=== PATIENT | female | born 1980 | race African-American/Black ===

== ENCOUNTER 2023-12-17 22:26 | Emergency (ER) | payer MEDICAID ==
[2023-12-18 00:02] LABS: BASOPHILS ABSOLUTE AUTO 0.1 K/mm3 (0.0-0.2); BASOPHILS PERCENT AUTO 0.3 % (0.0-1.0); EOSINOPHILS PERCENT AUTO 0.2 % (0.0-6.0); HEMATOCRIT 28.8 % (37.0-47.0); HEMOGLOBIN 9.4 gm/dl (12.0-16.0); IMMATURE GRAN ABSOLUTE AUTO 0.15 K/mm3 (0.00-0.05); IMMATURE GRAN PERCENT AUTO 0.8 % (0.0-0.4); LYMPHOCYTES ABSOLUTE AUTO 0.8 K/mm3 (1.0-4.8); LYMPHOCYTES PERCENT AUTO 4.6 % (24.0-44.0); MEAN CORPUSCULAR HEMOGLOBIN 29.7 pg (28.0-32.0); MEAN CORPUSCULAR HGB CONC 32.6 g/dl (32.0-36.0); MEAN CORPUSCULAR VOLUME 91.1 fl (83.0-99.0); MEAN PLATELET VOLUME 11.3 fl (9.4-12.3); MONOCYTES PERCENT AUTO 11.1 % (0.0-8.0); NEUTROPHILS ABSOLUTE AUTO 14.8 K/mm3 (1.8-7.7); PLATELET COUNT,PLT 74 K/mm3 (150-400); RED BLOOD CELL COUNT 3.16 M/mm3 (4.10-5.30); WHITE BLOOD CELL COUNT,WBC 17.89 K/mm3 (3.9-11.3)
[2023-12-18 00:15] LABS: CORONAVIRUS COVID-19 NAA NEGATIVE (NEGATIVE); INFLUENZA A NAA NEGATIVE (NEGATIVE); RESPIRATORY SYNCYTIAL VIR NAA NEGATIVE (NEGATIVE)
[2023-12-18 00:27] LABS: SLIDE REVIEW ABNORMAL SMEAR
[2023-12-18 00:34] LABS: A/G RATIO 0.4 (1-2); ALANINE AMINOTRANSFERASE,ALT 22 U/L (14-59); ALBUMIN 2.3 g/dl (3.4-5.0); ALKALINE PHOSPHATASE 162 U/L (46-116); ANION GAP 14.2 (5-15); BILIRUBIN TOTAL 6.2 mg/dL (0.2-1.0); BLOOD UREA NITROGEN,BUN 4 mg/dL (7-18); BUN/CREATININE RATIO 4.4 (14-18); CALCIUM 7.8 mg/dL (8.5-10.1); CARBON DIOXIDE,CO2 21 mEq/L (21-32); CHLORIDE,CL 99 mEq/L (98-107); EST CRCL DRUG DOSING (CG) 79.99 mL/min; ESTIMATED GFR 82 mL/min (>60); GLUCOSE RANDOM 105 mg/dL (70-99); SODIUM,NA 131 mEq/L (136-145)
[2023-12-18 00:35] LABS: APPEARANCE,URINE CLEAR (Clear); BILIRUBIN,URINE 2+ (Negative); COLOR,URINE DARK YELLOW (Yellow); GLUCOSE,URINE NEGATIVE (Negative); KETONES,URINE 2+ (Negative); LEUKOCYTE ESTERASE,URINE 1+ (Negative); NITRITE,URINE NEGATIVE (Negative); OCCULT BLOOD,URINE NEGATIVE (Negative); PROTEIN,URINE 1+ (Negative)
[2023-12-18 00:35] LABS: CREATININE 0.9 mg/dL (0.55-1.02); HCG QUANTITATIVE < 1.0 mIU/mL; POTASSIUM,K 3.2 mEq/L (3.5-5.1); PROTEIN TOTAL,TP 7.9 g/dl (6.4-8.2)
[2023-12-18 00:36] LABS: ASPARTATE AMNIOTRANSFERASE,AST 122 U/L (15-37)
[2023-12-18 00:43] LABS: BACTERIA,URINE FEW /hpf (FEW); MUCUS,URINE NOT SEEN /hpf (FEW); RBC,URINE 0-5 /hpf (0-5)
[2023-12-18] MEDS: Sodium Chloride 0.9% 10 ML Syringe FLUSH PRN (00:50)
[2023-12-18] MEDS: Doxycycline 100 MG in Sodium Chloride 0.9% 100 ML IV ONE (00:53)
== END 2023-12-18 02:09 | disposition home or self-care (01) ==
LOC: JD.ED 22:26
DX: N30.00 Acute cystitis without hematuria (principal); Z79.899 Other long term (current) drug therapy; Z86.16 Personal history of COVID-19; Z87.891 Personal history of nicotine dependence
CPT/HCPCS: 0241U; 36415; 80053; 81001; 83735; 84702; 85025; 87086; 96365; 99284; J3490

== ENCOUNTER 2024-03-05 23:06 | Emergency (ER) | payer MEDICAID ==
[2024-03-06 00:30] LABS: BASOPHILS ABSOLUTE AUTO 0.1 K/mm3 (0.0-0.2); BASOPHILS PERCENT AUTO 0.8 % (0.0-1.0); EOSINOPHILS ABSOLUTE AUTO 0.1 K/mm3 (0.0-0.4); EOSINOPHILS PERCENT AUTO 1.3 % (0.0-6.0); HEMOGLOBIN 9.8 gm/dl (12.0-16.0); IMMATURE GRAN ABSOLUTE AUTO 0.01 K/mm3 (0.00-0.05); IMMATURE GRAN PERCENT AUTO 0.2 % (0.0-0.4); LYMPHOCYTES ABSOLUTE AUTO 2.2 K/mm3 (1.0-4.8); LYMPHOCYTES PERCENT AUTO 34.9 % (24.0-44.0); MEAN CORPUSCULAR HEMOGLOBIN 32.7 pg (28.0-32.0); MEAN CORPUSCULAR HGB CONC 32.7 g/dl (32.0-36.0); MEAN PLATELET VOLUME 11.8 fl (9.4-12.3); MONOCYTES ABSOLUTE AUTO 0.9 K/mm3 (0.0-0.8); MONOCYTES PERCENT AUTO 14.2 % (0.0-8.0); NEUTROPHILS PERCENT AUTO 48.6 % (41.0-71.0); PLATELET COUNT,PLT 55 K/mm3 (150-400); WHITE BLOOD CELL COUNT,WBC 6.21 K/mm3 (3.9-11.3)
[2024-03-06 00:41] LABS: A/G RATIO 0.5 (1-2); ALBUMIN 2.7 g/dl (3.4-5.0); ANION GAP 21.3 (5-15); BILIRUBIN TOTAL 7.4 mg/dL (0.2-1.0); BUN/CREATININE RATIO 5.6 (14-18); C-REACTIVE PROTEIN 0.76 mg/dL (<0.30); CALCIUM 8.7 mg/dL (8.5-10.1); EST CRCL DRUG DOSING (CG) 77.01 mL/min; ETHANOL BLOOD MEDICAL 0.28 gm% (0.00); MAGNESIUM 1.6 mg/dL (1.8-2.4)
[2024-03-06 00:44] LABS: POTASSIUM,K 3.3 mEq/L (3.5-5.1); PROTEIN TOTAL,TP 8.3 g/dl (6.4-8.2)
[2024-03-06 00:45] LABS: CREATININE 0.9 mg/dL (0.55-1.02)
[2024-03-06 01:10] LABS: SLIDE REVIEW ABNORMAL SMEAR
[2024-03-06 01:44] LABS: APPEARANCE,URINE TURBID (Clear); BILIRUBIN,URINE 3+ (Negative); COLOR,URINE RED (Yellow); GLUCOSE,URINE TRACE (Negative); KETONES,URINE 2+ (Negative); LEUKOCYTE ESTERASE,URINE 3+ (Negative); NITRITE,URINE POSITIVE (Negative); OCCULT BLOOD,URINE 3+ (Negative); PH,URINE 5.5 (5.0-8.0); PROTEIN,URINE 3+ (Negative)
[2024-03-06 01:56] LABS: BARBITURATE SCREEN,URINE NEGATIVE (CUTOFF=200); BENZODIAZEPINES SCREEN,URINE NEGATIVE (CUTOFF=150); BUPRENORPHINE SCREEN,URINE NEGATIVE (CUTOFF=10); METHADONE SCREEN, URINE NEGATIVE (CUTOFF=200); METHAMPHETAMINES SCREEN, URINE NEGATIVE (CUTOFF=500); OXYCODONE SCREEN,URINE NEGATIVE (CUT0FF=100); THC SCREEN,URINE 20 NG/ML NEGATIVE (CUTOFF=50)
[2024-03-06 02:02] LABS: AMPHETAMINES SCREEN, URINE NEGATIVE (CUTOFF=500)
[2024-03-06 02:06] LABS: BACTERIA,URINE MANY /hpf (FEW); MUCUS,URINE MODERATE /hpf (FEW); RBC,URINE TOO NUMEROUS TO CNT /hpf (0-5); SQUAMOUS EPITHELIAL CELLS,UR 0-5 /hpf (0-5); WBC,URINE >100 /hpf (0-5)
[2024-03-06] MEDS: Levofloxacin/Dextrose 5%-Water 500 MG in Premix Bag 1 BAG IV ONE (03:08)
[2024-03-06] MEDS: Sodium Chloride 0.9% 10 ML Syringe FLUSH PRN (03:10)
== END 2024-03-06 03:56 | disposition home or self-care (01) ==
LOC: JD.ED 23:06
DX: F45.8 Other somatoform disorders (principal); K72.10 Chronic hepatic failure without coma; K70.31 Alcoholic cirrhosis of liver with ascites; F10.10 Alcohol abuse, uncomplicated; Z86.16 Personal history of COVID-19; Z79.899 Other long term (current) drug therapy
CPT/HCPCS: 36415; 80053; 80306; 80307; 81001; 82140; 82977; 83735; 84702; 85025; 86140; 87086; 96365; 99284; J1956; J3490

== ENCOUNTER 2024-03-13 09:25 | Emergency (ER) | payer MEDICAID ==
[2024-03-13 10:20] LABS: APPEARANCE,URINE CLOUDY (Clear); BILIRUBIN,URINE 3+ (Negative); COLOR,URINE AMBER (Yellow); GLUCOSE,URINE NEGATIVE (Negative); KETONES,URINE TRACE (Negative); LEUKOCYTE ESTERASE,URINE TRACE (Negative); NITRITE,URINE NEGATIVE (Negative); OCCULT BLOOD,URINE 3+ (Negative); PH,URINE 6.5 (5.0-8.0); PROTEIN,URINE 2+ (Negative)
[2024-03-13 10:32] LABS: BACTERIA,URINE MANY /hpf (FEW); MUCUS,URINE FEW /hpf (FEW); RBC,URINE TOO NUMEROUS TO CNT /hpf (0-5)
[2024-03-13 11:06] LABS: BASOPHILS ABSOLUTE AUTO 0.1 K/mm3 (0.0-0.2); BASOPHILS PERCENT AUTO 1.2 % (0.0-1.0); EOSINOPHILS ABSOLUTE AUTO 0.1 K/mm3 (0.0-0.4); HEMATOCRIT 25.8 % (37.0-47.0); HEMOGLOBIN 8.1 gm/dl (12.0-16.0); IMMATURE GRAN ABSOLUTE AUTO 0.01 K/mm3 (0.00-0.05); IMMATURE GRAN PERCENT AUTO 0.2 % (0.0-0.4); LYMPHOCYTES ABSOLUTE AUTO 2.1 K/mm3 (1.0-4.8); LYMPHOCYTES PERCENT AUTO 32.3 % (24.0-44.0); MEAN CORPUSCULAR HEMOGLOBIN 31.5 pg (28.0-32.0); MEAN CORPUSCULAR HGB CONC 31.4 g/dl (32.0-36.0); MEAN CORPUSCULAR VOLUME 100.4 fl (83.0-99.0); MEAN PLATELET VOLUME 11.9 fl (9.4-12.3); MONOCYTES ABSOLUTE AUTO 1.2 K/mm3 (0.0-0.8); MONOCYTES PERCENT AUTO 18.9 % (0.0-8.0); NEUTROPHILS ABSOLUTE AUTO 2.9 K/mm3 (1.8-7.7); NEUTROPHILS PERCENT AUTO 45.4 % (41.0-71.0); PLATELET COUNT,PLT 97 K/mm3 (150-400); RED BLOOD CELL COUNT 2.57 M/mm3 (4.10-5.30); WHITE BLOOD CELL COUNT,WBC 6.44 K/mm3 (3.9-11.3)
[2024-03-13 11:21] LABS: A/G RATIO 0.5 (1-2); ALBUMIN 2.1 g/dl (3.4-5.0); ANION GAP 12.9 (5-15); BILIRUBIN TOTAL 8.4 mg/dL (0.2-1.0); BUN/CREATININE RATIO 8.6 (14-18); C-REACTIVE PROTEIN 1.46 mg/dL (<0.30); EST CRCL DRUG DOSING (CG) 99.01 mL/min; MAGNESIUM 1.4 mg/dL (1.8-2.4)
[2024-03-13 11:25] LABS: CREATININE 0.7 mg/dL (0.55-1.02); POTASSIUM,K 3.9 mEq/L (3.5-5.1); PROTEIN TOTAL,TP 6.6 g/dl (6.4-8.2)
[2024-03-13 11:36] LABS: LACTIC ACID 1.1 mmol/L (0.4-2.0)
[2024-03-13] MEDS: Metoclopramide 10 MG/2 ML SDV IVPUSH ONE (11:42)
[2024-03-13 11:43] LABS: GAMMA GLUTAMYL TRANSFERASE,GGT 102 U/L (5-55); LIPASE 66 U/L (16-77)
[2024-03-13] MEDS: HYDROmorphone 0.5 MG/0.5 ML Syringe IVPUSH ONE (11:44)
[2024-03-13] MEDS: Dextrose 5%-0.9% NaCl 1,000 ML IV SCH (11:46)
[2024-03-13] MEDS: Phenazopyridine 95 MG Tab PO ONE (11:46)
[2024-03-13] MEDS: Cefdinir 300 MG Cap PO ONE (16:17)
== END 2024-03-13 16:20 ==
LOC: JD.ED 09:25
DX: K70.30 Alcoholic cirrhosis of liver without ascites (principal); N39.0 Urinary tract infection, site not specified; D64.9 Anemia, unspecified; E83.42 Hypomagnesemia; Z86.16 Personal history of COVID-19; Z79.899 Other long term (current) drug therapy; Z91.018 Allergy to other foods
CPT/HCPCS: 36415; 74018; 74176; 80053; 81001; 82977; 83605; 83690; 83735; 85025; 86140; 87086; 96361; 96374; 96375; 99284; A9270; J1170; J2765; J7042

== ENCOUNTER 2024-05-15 10:38 | Emergency (ER) | payer MEDICAID ==
[2024-05-15 12:08] LABS: A/G RATIO 0.5 (1-2); ALBUMIN 2.7 g/dl (3.4-5.0); ANION GAP 13.4 (5-15); BILIRUBIN TOTAL 4.6 mg/dL (0.2-1.0); BUN/CREATININE RATIO 15.7 (14-18); CALCIUM 8.6 mg/dL (8.5-10.1); EST CRCL DRUG DOSING (CG) 98.01 mL/min; POTASSIUM,K 3.4 mEq/L (3.5-5.1)
[2024-05-15 12:09] LABS: BASOPHILS ABSOLUTE AUTO 0.1 K/mm3 (0.0-0.2); BASOPHILS PERCENT AUTO 1.3 % (0.0-1.0); EOSINOPHILS ABSOLUTE AUTO 0.2 K/mm3 (0.0-0.4); EOSINOPHILS PERCENT AUTO 3.4 % (0.0-6.0); HEMATOCRIT 30.3 % (37.0-47.0); HEMOGLOBIN 9.7 gm/dl (12.0-16.0); IMMATURE GRAN ABSOLUTE AUTO 0.02 K/mm3 (0.00-0.05); IMMATURE GRAN PERCENT AUTO 0.3 % (0.0-0.4); LYMPHOCYTES ABSOLUTE AUTO 1.7 K/mm3 (1.0-4.8); LYMPHOCYTES PERCENT AUTO 25.7 % (24.0-44.0); MEAN CORPUSCULAR HEMOGLOBIN 31.5 pg (28.0-32.0); MEAN CORPUSCULAR VOLUME 98.4 fl (83.0-99.0); MEAN PLATELET VOLUME 11.6 fl (9.4-12.3); MONOCYTES ABSOLUTE AUTO 1.1 K/mm3 (0.0-0.8); NEUTROPHILS ABSOLUTE AUTO 3.6 K/mm3 (1.8-7.7); NEUTROPHILS PERCENT AUTO 53.3 % (41.0-71.0); PLATELET COUNT,PLT 102 K/mm3 (150-400); RED BLOOD CELL COUNT 3.08 M/mm3 (4.10-5.30); WHITE BLOOD CELL COUNT,WBC 6.68 K/mm3 (3.9-11.3)
[2024-05-15 12:12] LABS: INR 1.69; PROTHROMBIN TIME 17.3 SECONDS (9.7-12.0)
[2024-05-15 12:14] LABS: PTT,PARTIAL THROMBOPLSTIN TIME 30.1 SECONDS (21.7-31.4)
[2024-05-15 12:21] LABS: PROTEIN TOTAL,TP 8.1 g/dl (6.4-8.2)
[2024-05-15 12:22] LABS: CREATININE 0.7 mg/dL (0.55-1.02)
[2024-05-15] MEDS: HYDROmorphone 0.5 MG/0.5 ML Syringe IVPUSH ONE (12:28)
[2024-05-15] MEDS: diphenhydrAMINE 50 MG/ML SDV IVPUSH ONE (12:28)
[2024-05-15] MEDS: Famotidine 20 MG/2 ML SDV IVPUSH ONE (12:28)
[2024-05-15] MEDS: Sodium Chloride 0.9% 10 ML Syringe FLUSH PRN (12:29)
== END 2024-05-15 15:11 | disposition home or self-care (01) ==
LOC: JD.ED 10:38
DX: R41.0 Disorientation, unspecified (principal); K72.10 Chronic hepatic failure without coma; Z86.16 Personal history of COVID-19; Z79.899 Other long term (current) drug therapy; Z91.018 Allergy to other foods
CPT/HCPCS: 36415; 80053; 80307; 82140; 85025; 85610; 85730; 96374; 96375; 99285; J1171; J1200; J3490